=== PATIENT | female | born 1990 | race Caucasian/White ===

== ENCOUNTER 2021-06-25 18:36 | Emergency (ER) | payer OTHER ==
[2021-06-25] MEDS ORDERED: Acetaminophen 500 MG TAB ONE (23:00)
== END 2021-06-25 23:40 | disposition home or self-care (01) ==
LOC: ERS 18:36
DX: S16.1XXA Strain of muscle, fascia and tendon at neck level, initial encounter (principal); W01.0XXA Fall on same level from slipping, tripping and stumbling without subsequent striking against object, initial encounter
CPT/HCPCS: 70450; 70486; 72125

== ENCOUNTER 2024-04-22 12:51 | Emergency (ER) | payer OTHER ==
[2024-04-22 13:57] LABS: Bacteria/HPF None Seen HPF (None Seen); Bilirubin Negative (Negative); Blood, Urine Negative (Negative); CAUTI Indications for Culture Pelvic or flank pain; Clarity Clear (Clear); Glucose, Urine (Dipstick) Normal (Negative); Ketone, Urine Negative (Negative); Leukocyte Negative Leu/uL (Negative); Nitrite Negative (Negative); Protein, Urine (Dipstick) Negative (Neg-Trace); RBC/HPF 0-3 HPF (0-3); Specific Gravity, Urine 1.004 (1.002-1.036); Squamous Epithelial 0-3 HPF (0-3); Urobilinogen Normal mg/dL (Less than 2); WBC/HPF 0-3 HPF (0-3)
[2024-04-22 14:05] LABS: Urine Culture Reflex No No
[2024-04-22] MEDS ORDERED: Ibuprofen 200 MG TAB ONE (15:27)
== END 2024-04-22 16:00 | disposition home or self-care (01) ==
LOC: ERS 12:51
DX: N81.10 Cystocele, unspecified (principal)
CPT/HCPCS: 81001; 99283